=== PATIENT | male | born 1970 | race Caucasian/White ===

== ENCOUNTER 2021-06-15 11:00 | Inpatient (IN) | payer OTHER ==
[~2021-06-15] VITALS: Ht 182.9 cm; Wt 55.4 kg
[2021-06-15 12:46] LABS: HEMOGLOBIN 15.5 gm/dl (14.0-17.5); RED BLOOD COUNT 4.56 M/UL (4.20-5.50); WHITE BLOOD COUNT 4.8 K/UL (4.5-11.0)
[2021-06-15 13:19] LABS: BUN/CREATININE RATIO 6 (0-10)
[2021-06-15] MEDS ORDERED: JANUMET XR 50-1 EACH PO (18:13)
[2021-06-16 07:53] LABS: BUN/CREATININE RATIO 13 (0-10)
[2021-06-17 04:33] LABS: BUN/CREATININE RATIO 9 (0-10)
[2021-06-18 03:40] LABS: BUN/CREATININE RATIO 14 (0-10)
[2021-06-18] MEDS ORDERED: FOLIC ACID 1 MG1 MG PO (11:30)
[2021-06-18] MEDS ORDERED: VITAMIN B-1100 M1 PO (11:30)
[2021-06-18] MEDS ORDERED: THERAGRAN M TAB1 EA PO (11:30)
== END 2021-06-18 12:30 | disposition home or self-care (01) | DRG 897 ==
LOC: ER1 11:00 → CDU 17:42 → PROG CARE 06-16
PROVIDERS: Physician Assistant; ADMIT Internal Medicine
DX: F10.139 Alcohol abuse with withdrawal, unspecified (principal); E44.0 Moderate protein-calorie malnutrition; Z20.822 Contact with and (suspected) exposure to COVID-19; Z68.1 Body mass index [BMI] 19.9 or less, adult; F19.20 Other psychoactive substance dependence, uncomplicated; K76.0 Fatty (change of) liver, not elsewhere classified; E11.9 Type 2 diabetes mellitus without complications; K70.9 Alcoholic liver disease, unspecified; Z79.4 Long term (current) use of insulin
CPT/HCPCS: 36415; 80053; 81001; 82962; 83690; 83735; 84100; 85025; 93005; 96374; 96375; 96376; 99285; G0480; J1650; J2060; J2405; J3360; J3411; J3475; J7030; Q9967; U0002